=== PATIENT | male | born 1965 | race Caucasian/White ===

== ENCOUNTER 2024-04-25 06:32 | Day surgery (SDC) | payer OTHER, SELFPAY ==
[2024-04-22 10:34] VITALS: BMI 35.9
[2024-04-25] VITALS (9 sets, daily range): BP systolic 124–133; BP diastolic 81–87; BMI 35.9
[2024-04-25] MEDS: TYLENOL 1000 MG PO (07:51)
--- NOTE | 2024-04-25 12:14 | W.PN.UPDATE ---
Update Note
Progress Note Update
OP report campus recruiting internship ID [id number]
== END 2024-04-25 14:28 | disposition home or self-care (01) ==
LOC: SDS 06:32
PROVIDERS: ATTENDING PHYSICIAN Student in an Organized Health Care Education/Training Program; FAMILY PHYSICIAN Internal Medicine
DX: S46.012A Strain of muscle(s) and tendon(s) of the rotator cuff of left shoulder, initial encounter (principal); M19.012 Primary osteoarthritis, left shoulder; S43.082A Other subluxation of left shoulder joint, initial encounter; V86.56XA Driver of dirt bike or motor/cross bike injured in nontraffic accident, initial encounter
CPT/HCPCS: 29827; 29828; 36415; 93005; C1713